=== PATIENT | male | born 1975 | race American Indian/Alaskan Native ===

== ENCOUNTER 2016-09-08 10:20 | Emergency (ER) | payer BC ==
--- NOTE | 2016-09-08 12:49 | XRay Report ---
CHEST TWO VIEWS: 09/08/16 10:20:00 CLINICAL: Cough and chills. COMPARISON: None FINDINGS: Normal heart and pulmonary vasculature. The lungs are normally expanded and clear.The bones and soft tissues are unremarkable. IMPRESSION: Normal chest.
[2016-09-08 13:27] VITALS: BP 140/84
--- NOTE | 2016-09-08 13:56 | Emergency Department Report ---
Entered by CHARISMA STEWART, acting as scribe for BRE XIE PA. HPI - General Chief Complaint: Sore Throat Time Seen by Provider: 09/08/16 11:14 - HPI HPI: 40 y/o male with PMHx of HIV, presents to the ED c/o sore throat. Associated symptoms include productive cough with green mucus, nasal congestion, chills, nausea and vomiting but he denies fever, chest pain and SOB. Pain is described as 8/10 on a severity scale. No aggravating factors. Mild relief from Hycodan syrup. NKDA. Patient has infectious disease specialist and had lab work done which were normal.. Patient denies any bleeding disorder, kidney disease. ED Past Medical Hx - Past Medical History Previous Medical History?: Yes Hx HIV: Yes - Surgical History Past Surgical History?: Yes Additional Surgical History: DEVIATED SEPTUM - Family History Family history: hypertension - Social History Smoking Status: Never Smoker Substance Use Type: None - Medications Home Medications: Home Medications Medication Instructions Recorded Confirmed Last Taken Type Cetirizine HCl [ZyrTEC] 10 mg PO QAM #14 capsule 09/08/16 Unknown Rx Fluticasone [Flonase] 1 spray NS QDAY #1 bottle 09/08/16 Unknown Rx Hydrocodone/Chlorphen Polis(Nf 5 ml PO Q12H PRN #70 ml 09/08/16 Unknown Rx [Tussionex (Nf)] Levofloxacin [Levaquin TAB] 500 mg PO QDAY #7 tablet 09/08/16 Unknown Rx ED Review of Systems ROS: Stated complaint: COUGH Other details as noted in HPI Comment: All other systems reviewed and negative Constitutional: chills. denies: fever ENT: throat pain, congestion Respiratory: cough (productive with green mucus). denies: shortness of breath Cardiovascular: denies: chest pain Gastrointestinal: denies: abdominal pain, nausea, vomiting, diarrhea, constipation Genitourinary: denies: urgency, dysuria, frequency, hematuria, discharge Musculoskeletal: denies: back pain, arthralgia Skin: denies: rash Neurological: denies: headache, weakness Physical Exam - Physical Exam Vital Signs: Vital Signs 09/08/16 10:27 Temperature 98.6 F Pulse Rate 94 H Respiratory 18 Rate Blood Pressure 160/100 O2 Sat by Pulse 99 Oximetry Vital Signs 09/08/16 09/08/16 10:27 13:26 Temperature 98.6 F Pulse Rate 94 H Respiratory 18 Rate Blood Pressure 160/100 Blood Pressure 140/84 [Left] O2 Sat by Pulse 99 Oximetry General: 40-year-old male well-nourished well-developed in no acute distress. Physical Exam: Head: Normocephalic, atraumatic Mouth: Moist, no pharyngeal exudate or erythema. Uvula is midline and oral airway is patent. No facial swelling. No peritonsillar abscesses. Nose: Normal external appearance, positive clear drainage. Congested without erythema. Maxillary and frontal sinuses nontender to palpation Neck: Supple, no C-spine tenderness, no tracheal deviation. Nontender to palpation. no adenopathy Ears: Bilateral TMs congested without erythema. Bilateral EAC without any redness, swelling, or drainage. Abdomen: Soft, nontender to palpation in all quadrants, normal bowel sounds in all quadrants and negative CVA tenderness bilaterally. Eyes: Bilateral pupils equal and reactive to light, bilateral EOM intact. Bilateral sclera and conjunctiva without injection. Normal accommodation. Lungs: Clear to auscultation bilaterally, no rhonchi, wheezes, or rales. Normal work of breathing. No use of accessory muscles. Dry cough Extremities: No CCE. +2 pulses. No neurovascular compromise Cardiovascular: S1-S2, regular rate, regular rhythm. No murmurs. Skin: Clean, dry, and intact with no rash and no lesions Psych: Normal mood and behavior ED Course Vital Signs 09/08/16 10:27 Temperature 98.6 F Pulse Rate 94 H Respiratory 18 Rate Blood Pressure 160/100 O2 Sat by Pulse 99 Oximetry - Reevaluation(s) Reevaluation #1: 09/08/16 13:36 Patient stable ed stay ED Medical Decision Making - Radiology Data Radiology results: report reviewed Chest x-ray reveals no acute cardiopulmonary processes - Medical Decision Making ED Course: Patient here complaining this, nasal congestion and productive green cough for 2 days. Strep Negative and culture is pending. Chest x-ray negative for any acute findings. I discussed results of x-ray and strep test with patient. I discussed the patient's immunocompromise him on antibiotic. Patient is allergic to sulfa medicine and penicillins. He reports that is infectious disease doctor put him on Levaquin. I discussed case with Dr. Vazquez and he is okay with patient being on Levaquin. Patient does not have any history of kidney, bleeding disorder or liver disease. He said that he recently had lab work drawn at his infectious disease doctor at 0 okay. Patient discharged home with prescription for Zyrtec, Levaquin, Flonase and Tussionex cough syrup. Discharged home in stable condition. Critical care attestation.: If time is entered above; I have spent that time in minutes in the direct care of this critically ill patient, excluding procedure time. ED Disposition Clinical Impression: Cough, Immunocompromised patient Upper respiratory infection Qualifiers: URI type: unspecified URI Qualified Code(s): J06.9 - Acute upper respiratory infection, unspecified Disposition: DC- TO HOME OR SELFCARE Is pt being admited?: No Does the pt Need Aspirin: No Condition: Stable Instructions: Acute Cough (ED), Upper Respiratory Infection (ED), Viral Syndrome (ED) Additional Instructions: Please do not take cough medicine while driving or operating heavy machinery at this medication can cause drowsiness. Please take antibiotic as prescribed Follow-up your infectious disease doctor in 2 days. Prescriptions: Cetirizine HCl [ZyrTEC] 10 mg PO QAM #14 capsule Fluticasone [Flonase] 1 spray NS QDAY #1 bottle Hydrocodone/Chlorphen Polis(Nf [Tussionex (Nf)] 5 ml PO Q12H PRN #70 ml PRN Reason: Cough Levofloxacin [Levaquin TAB] 500 mg PO QDAY #7 tablet Referrals: PRIMARY CARE,MD [Primary Care Provider] - 3-5 Days Forms: Work/School Release Form(ED) This documentation as recorded by the TERRY escobar ELIZABETH,accurately reflects the service I personally performed and the decisions made by me,BRE XIE PA.
== END 2016-09-08 14:14 | disposition home or self-care (01) ==
LOC: ED 10:20
DX: J06.9 Acute upper respiratory infection, unspecified (principal); R05 Cough; Z88.0 Allergy status to penicillin; Z88.2 Allergy status to sulfonamides
CPT/HCPCS: 71020; 87116; 87430